=== PATIENT | male | born 1970 | race African-American/Black ===

== ENCOUNTER 2016-10-04 10:40 | Emergency (ER) | payer BC ==
[~2016-10-04] VITALS: Ht 190.5 cm; Wt 103.4 kg
[2016-10-04 11:15] VITALS: BP 127/59
[2016-10-04] MEDS ORDERED: DEXAMETHASONE SOD PHOS 20 MG/5 ML VIAL. IM ONE (12:00)
[2016-10-04] MEDS ORDERED: DIAZEPAM 5 MG TABLET PO ONE (12:00)
[2016-10-04] MEDS ORDERED: MORPHINE SULFATE 10 MG/ML VIAL. IM ONE (12:00)
[2016-10-04] MEDS ORDERED: KETOROLAC TROMETHAMINE 60 MG/2 ML SYRINGE. IM ONE (12:00)
[2016-10-04] MEDS ORDERED: BENZ100C PO (12:08)
[2016-10-04] MEDS ORDERED: CYCL10TA2 PO (12:08)
[2016-10-04] MEDS ORDERED: METH4TAB2 PO (12:08)
[2016-10-04] MEDS ORDERED: PROAIR RESPICL90 MCG IH (12:08)
[2016-10-04] MEDS ORDERED: NAPR375T3 PO (12:08)
--- NOTE | 2016-10-04 12:08 | PHYS DOC ---
Past Medical History Past Medical History: Other Additional Past Medical Histor: CHRONIC BACK PAIN Past Surgical History: No Surgical History Alcohol Use: Rarely Drug Use: None Adult General Chief Complaint Chief Complaint: LOWER BACK PAIN OR INJURY [facility] HPI Patient is a 46 year old medical presents with 10 out of 10 exacerbation of bilateral low back pain worse on the right side radiating to bilateral lower extremities. Patient states the pain got worse this morning when he woke up and turned wrong. Patient denies falling. Patient denies any numbness up-to-date to bilateral lower extremities. Denies any loss of bowel bladder function. He is also complaining of pain on the right lower rib only when he coughs. Patient is a smoker. Patient denies any chest pain or shortness of breath. Review of Systems Review of Systems Constitutional: Denies fever or chills [] Eyes: Denies change in visual acuity, redness, or eye pain [] HENT: Denies nasal congestion or sore throat [] Respiratory: Right lower rib pain especially when coughing Cardiovascular: No additional information not addressed in HPI [] GI: Denies abdominal pain, nausea, vomiting, bloody stools or diarrhea [] : Denies dysuria or hematuria [] Musculoskeletal: Bilateral low back pain worse on the right side Integument: Denies rash or skin lesions [] Neurologic: Denies headache, focal weakness or sensory changes [] Endocrine: Denies polyuria or polydipsia [] Current Medications Current Medications Current Medications Medications (Trade) Dose Ordered Sig/[facility] Start Time Stop Time Status Last Admin Dose Admin Dexamethasone Sodium Phosphate (Decadron) 10 mg 1X ONCE 10/04/16 12:00 10/04/16 12:01 DC Diazepam (Valium) 5 mg 1X ONCE 10/04/16 12:00 10/04/16 12:01 DC Ketorolac Tromethamine (Toradol Im) 60 mg 1X ONCE 10/04/16 12:00 10/04/16 12:01 DC Morphine Sulfate 5 mg 1X ONCE 10/04/16 12:00 10/04/16 12:01 DC 10/04/16 12:18 5 MG Allergies Allergies Allergies Coded Allergies Type Severity Reaction Last Updated Verified No Known Drug Allergies 10/04/16 No Physical Exam Physical Exam Constitutional: Well developed, well nourished, no acute distress, non-toxic appearance. [] HENT: Normocephalic, atraumatic, bilateral external ears normal, oropharynx moist, no oral exudates, nose normal. [] Eyes: PERRLA, EOMI, conjunctiva normal, no discharge. [] Neck: Normal range of motion, no tenderness, supple, no stridor. [] Cardiovascular:Heart rate regular rhythm, no murmur [] Lungs & Thorax: Bilateral breath sounds clear to auscultation [] Abdomen: Bowel sounds normal, soft, no tenderness, no masses, no pulsatile masses. [] Skin: Warm, dry, no erythema, no rash. [] Back: Diffuse tenderness paraspinal muscles of bilateral low lumbar region worse on the right SI joint, no midline tenderness, no CVA tenderness. Positive bilateral legs straight raises. Extremities: No tenderness, no cyanosis, no clubbing, ROM intact, no edema. [] Neurologic: Alert and oriented X 3, normal motor function, normal sensory function, no focal deficits noted. [] Psychologic: Affect normal, judgement normal, mood normal. [] Current Patient Data Vital Signs Vital Signs Date Time Temp Pulse Resp B/P Pulse Ox O2 Delivery O2 Flow Rate FiO2 10/04/16 12:18 Room Air 10/04/16 11:15 98.3 68 18 96 98.3 EKG EKG [] Radiology/Procedures Radiology/Procedures [] Course & Med Decision Making Course & Med Decision Making Pertinent Labs and Imaging studies reviewed. (See chart for details) Patient is in the ED with complaints of bilateral low back pain chronic in nature but got exacerbated when he turned wrong today. He was hoping to get a steroid injection in the ED. I ordered Decadron in the ED, morphina, valium and Toradol patient refuses all medicines and only wants Morphine. He also had right lower rib pain from coughing. Discharge her Tessalon Perles for coughing. Encouraged to consider smoking cessation. Discharged with naproxen and Flexeril and Medrol Dosepak for his back. Albuterol inhaler provided for the cough as well. Instructed to follow-up with her PCP for chronic pain management especially steroid injections. Patient tells the nurse all his D/C medicines are "garbage" he wants hydrocodone. Informed RN to let patient know he can follow up with a primary care doctor from the list provided and we will not give him hydrocodone because it has no indication for chronic back pain. Bradly Disclaimer Jaion Disclaimer This electronic medical record was generated, in whole or in part, using a voice recognition dictation system. Departure Departure Impression: Primary Impression: Exacerbation of chronic back pain Additional Impressions: Cough Sciatica Rib pain on right side Smoking addiction Disposition: 01 HOME, SELF-CARE Condition: STABLE Referrals: NO PCP (PCP) Follow-up with a doctor from the list provided in the next 7 days Patient Instructions: Back Pain, Adult, Cough, Adult, Sciatica Additional Instructions: You were seen for exacerbation of chronic back pain. You also have a cough and rib pain. Consider smoking cessation. Use the prescribed medicines as ordered. Follow-up with your own doctor in the next 7 days, if you don't have a doctor you can select a doctor from the list provided. Come back to the emergency room if symptoms worsen. Scripts Naproxen 375 Mg Tablet1 Tab PO BID #60 TAB Ref 5 Prov:MARLIN DANIEL KIRILL 10/04/16 Benzonatate (Tessalon Perle)100 Mg Capsule1 Cap PO TID #30 CAP Prov:MARLIN DANIEL [employer] 10/04/16 Albuterol Sulfate (Proair Respiclick)90 Mcg Aer.pow.ba1 Puff IH PRN Q6HRS PRN SHORTNESS OF BREATH #1 INHALER Prov:MARLIN DANIEL [employer] 10/04/16 Cyclobenzaprine Hcl 10 Mg Tablet1 Tab PO TID #30 TAB Prov:MARLIN DANIEL [employer] 10/04/16 Methylprednisolone (Medrol)4 Mg Tab.ds.pk1 Pkg PO UD #1 PKG Prov:MARLIN DANIEL KIRILL 10/04/16 Problem Qualifiers Additional Impressions: Sciatica Laterality: bilateral Qualified Code: M54.31 - Sciatica, right side MARLIN DANIEL [employer] Oct 04, 2016 12:08
== END 2016-10-04 12:37 | disposition home or self-care (01) ==
LOC: ER 10:40
DX: G89.29 Other chronic pain (principal); M54.5 Low back pain; R07.81 Pleurodynia; R05 Cough; M54.31 Sciatica, right side; F17.200 Nicotine dependence, unspecified, uncomplicated
CPT/HCPCS: 96372; 99283; J2270